=== PATIENT | female | born 1960 | race Caucasian/White ===

== ENCOUNTER 2018-02-12 12:14 | Emergency (ER) | payer OTHER ==
[~2018-02-12] VITALS: Ht 170.2 cm; Wt 96.0 kg
[2018-02-12] MEDS ORDERED: CLARITIN10 MG PO (12:28)
[2018-02-12] MEDS ORDERED: ZANTAC 150MG T150 MG PO (12:29)
[2018-02-12 13:37] VITALS: BP 150/89
== END 2018-02-12 13:37 | disposition home or self-care (01) ==
LOC: M.ERS 12:14
DX: S00.03XA Contusion of scalp, initial encounter (principal); K21.9 Gastro-esophageal reflux disease without esophagitis; W17.89XA Other fall from one level to another, initial encounter; Y93.89 Activity, other specified; Y92.89 Other specified places as the place of occurrence of the external cause; Y99.8 Other external cause status